=== PATIENT | female | born 1985 | race Caucasian/White ===

== ENCOUNTER 2019-04-19 11:56 | Emergency (ER) | payer MEDICAID, SELFPAY ==
[2019-04-19 11:58] VITALS: BP 109/61; PULSE 78; RESP 14; TEMP 36.7; O2SAT 99; BMI 36.4
--- NOTE | 2019-04-19 12:12 | ED.DCSUM_ITS ---
- ER Visit Summary Date of Service: 04/19/19 Chief Complaint: Medication refill History of Present Illness: The patient is a 33 F who presents for refill of her medications. Patient states she takes Tegretol and ran out last night. Patient states she has an appoint with a neurologist scheduled but it is not until June 07. Patient states she would not give her any medications until she saw her. Patient denies any seizure activity. Patient admits to some intermittent palpitations but denies any other symptoms. Physical Examination: Vital signs are stable. Patient is afebrile. Patient is in no acute distress. Oral mucosa is pink and moist. Neck is supple. Trachea is midline. There is no JVD noted. Heart was regular rate and rhythm. Lungs are clear and equal bilateral. Abdomen is soft. Bowel sounds are normal. There is no tenderness. There is no guarding noted. Skin is warm dry. Cranial nerves II through XII are intact. There are no focal motor or sensory deficits noted. Emergency Department Course and Treatment: Patient was given a month supply of her Tegretol. Patient was also given a referral for a primary care physician to follow-up with in 1 to 2 weeks. Patient was instructed to follow-up with her neurologist as scheduled. Patient understood and was agreeable with the plan. All questions were answered. Disposition: Discharge home Impression: Medication refill This note was generated with [employer] dictation software. It may contain incorrect words, spelling, and punctuation that were not noted in review of the chart prior to signing ED Disposition - Plan for ED Patient: Disposition: Home or Assisted Living Diagnosis: Encounter for medication refill Instructions: Med Refill Prescriptions: Carbamazepine [Tegretol] 200 mg PO TID #2 tab Prescription Printed Referrals: Wilda Tapia MD [COURTESY STAFF PHYSICIAN] - 1-2 Weeks
== END 2019-04-19 12:34 | disposition home or self-care (01) ==
PROVIDERS: Emergency Provider Emergency Medicine
DX: Z76.0 Encounter for issue of repeat prescription (principal); R00.2 Palpitations; F17.210 Nicotine dependence, cigarettes, uncomplicated; E03.9 Hypothyroidism, unspecified
CPT/HCPCS: 99282

== ENCOUNTER 2019-08-08 11:03 | Emergency (ER) | payer OTHER, SELFPAY ==
[2019-08-08 11:04] VITALS: BP 130/75; PULSE 79; RESP 16; TEMP 36.6; O2SAT 100; BMI 36.5
--- NOTE | 2019-08-08 11:32 | ED.VIS.GEN ---
History of Present Illness Chief Complaint: Med Refill Detail of Chief Complaint: Needs Tegretol refill Informant: Patient Narrative: She presents requesting refill of her Tegretol. She has been on Tegretol since the age of 9 for seizures. She is currently between neurologists. She takes 400 mg 3 times daily. - Past Medical History (1) Epilepsy Status: Chronic (2) Hypothyroid Status: Chronic Past Medical History - Allergies and Home Meds Allergies/Adverse Reactions: Allergies penicillin G Allergy (Verified 04/19/19 11:57) Hives Primary Care Physician: Care Physician,No Primary [Primary Care Provider] - Prior records reviewed: Yes Lives: With Family Smoking Status: Former smoker Review of Systems General: Denies: Chills, Fever Eyes: Denies: Visual changes - bilaterally ENT: Denies: Bilateral ear pain Cardiovascular: Denies: Chest pain Respiratory: Denies: Dyspnea, Cough Gastrointestinal: Denies: Abdominal pain Musculoskeletal: Denies: Myalgias Skin: Denies: Rash Neurological: Denies: Headache Physical Exam Vital Signs/Narrative: Vital Signs Temp Pulse Resp BP Pulse Ox 08/08/19 11:04 97.8 F 79 16 130/75 H 100 Inital Vital Signs reviewed: Yes General: Well nourished, Well developed Head: Normocephalic ENT: Moist mucous membranes Neck: Supple Cardiovascular: Regular rate, Regular rhythm Respiratory: No distress, CTA bilaterally Abdomen: Soft, Nontender Extremities: Nontender Skin: Normal color, Rash Neurological: Alert Psychological: Normal affect Diagnostic/Tx/Re-eval - Medical Decision Making Patient be given a refill of her Tegretol. She is to follow-up with neurology as soon as possible. ED Disposition - Plan for ED Patient: Disposition: Home or Assisted Living Diagnosis: Medication refill Instructions: Med Refill Prescriptions: Carbamazepine [Tegretol] 400 mg PO TID #180 tab Transmission Status: Pending to [facility] Referrals: Boy Brothers MD [STAFF PHYSICIAN] -
== END 2019-08-08 11:52 | disposition home or self-care (01) ==
LOC: ED 11:42
PROVIDERS: Emergency Provider Emergency Medicine
DX: Z76.0 Encounter for issue of repeat prescription (principal); G40.909 Epilepsy, unspecified, not intractable, without status epilepticus; Z79.899 Other long term (current) drug therapy; Z87.891 Personal history of nicotine dependence
CPT/HCPCS: 99282

== ENCOUNTER 2019-09-26 09:51 | Emergency (ER) | payer OTHER, SELFPAY ==
[2019-09-26 09:52] VITALS: BP 132/76; PULSE 74; RESP 16; TEMP 36.5; BMI 32.9
--- NOTE | 2019-09-26 10:47 | ED.VIS.GEN ---
History of Present Illness Chief Complaint: Dental Informant: Patient Onset: Days Narrative: Patient presents the emergency department with right upper dental pain. She has not contacted a dentist due to lack of dental insurance. Has not contacted her PCP. She left work and came to the emergency department due to the pain. Pain radiates up towards the right eye and to the right ear. Past Medical History - Allergies and Home Meds Allergies/Adverse Reactions: Allergies penicillin G Allergy (Verified 09/26/19 09:54) Hives Primary Care Physician: Care Physician,No Primary [Primary Care Provider] - Smoking Status: Current every day smoker Review of Systems General: Denies: Chills, Fever, Sweats Eyes: Denies: Visual changes - bilaterally, Diplopia ENT: Reports: - - Dental pain. Denies: Rhinorrhea, Sore throat Cardiovascular: Denies: Chest pain, Palpitations Respiratory: Denies: Dyspnea, Cough, Dyspnea on exertion Gastrointestinal: Denies: Abdominal pain, Nausea, Vomiting, Diarrhea, Melena, Hematochezia Genitourinary: Denies: Dysuria, Hematuria, Frequency Musculoskeletal: Denies: Back pain, Extremity Pain Skin: Denies: Rash, Wounds Neurological: Denies: Headache, Weakness, Numbness Physical Exam Vital Signs/Narrative: Vital Signs Temp Pulse Resp BP 09/26/19 09:52 97.7 F L 74 16 132/76 H Inital Vital Signs reviewed: Yes General: Well nourished - Several missing teeth. It appears to be the #4 tooth that is tender to palpation. No significant gum swelling. No trismus. No facial swelling or erythema., Well developed, No Acute Distress Head: Normocephalic, Atraumatic Eyes: Perrl, EOMI ENT: Moist mucous membranes, No rhinorrhea Neck: Supple, Nontender Cardiovascular: Regular rate, Regular rhythm, No murmurs Respiratory: No distress, CTA bilaterally, Chest nontender Abdomen: Soft, Nontender, Nondistended, Normal bowel sounds Back: Nontender, Normal Inspection Extremities: Nontender, No edema Skin: Normal color, No rash Neurological: Alert, Oriented x3, Cranial nerves II-XII grossly intact, Normal Strength, Normal Sensation Psychological: Normal affect, Normal Mood Diagnostic/Tx/Re-eval - Medical Decision Making Patient was started on penicillin naproxen and [place]. Follow-up with primary care and dentistry ED Disposition - Plan for ED Patient: Disposition: Home or Assisted Living Diagnosis: Pain, dental Instructions: Dental Pain Prescriptions: Clindamycin [Cleocin] 300 mg PO 4X/DAY #80 cap Prescription Printed Naproxen [Naprosyn] 500 mg PO BID PRN #20 tab Prescription Printed Hydrocodone Bitart/Apap 5-325 [[place] 5MG-325MG] 1 tab PO Q6H PRN PRN 3 Days #10 tab PRN Reason: Pain Prescription Printed Referrals: Madelaine Friedman [NON-STAFF] - As soon as possible
== END 2019-09-26 11:18 | disposition home or self-care (01) ==
PROVIDERS: Emergency Provider Emergency Medicine
DX: K08.89 Other specified disorders of teeth and supporting structures (principal); F17.200 Nicotine dependence, unspecified, uncomplicated
CPT/HCPCS: 99282

== ENCOUNTER 2019-12-30 10:34 | Emergency (ER) | payer OTHER, SELFPAY ==
[2019-12-30 10:36] VITALS: BP 122/70; PULSE 91; RESP 16; TEMP 36.1; O2SAT 100; BMI 33.7
--- NOTE | 2019-12-30 11:29 | ED.DCSUM_ITS ---
History of Present Illness Chief Complaint: Back Informant: Patient Onset: Days Context: Gradual Onset Quality: Sharp Location: - - cervical Worsened by: improves with: Movement Relieved by: Remaining Still Associated Symptoms: Numbness Narrative: Is a 34-year-old female with history of seizure disorder, headaches and thyroid disease presenting with continued low neck/upper thoracic back pain. Patient was seen at [place] emergency room yesterday where she had a CT performed. 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 MRI was recommended and patient was going to be transferred to [facility]. Trauma service and requested she be admitted to the hospitalist service and he has been accepted for transfer. Patient was unable to arrange childcare for her 2-year-old son so she left AGAINST MEDICAL ADVICE. She was discharged home in a c-collar. She states she is not had any progression of her symptoms but continues to have significant neck pain as well as paresthesias of her bilateral shoulders to her distal arms. She denies any weakness of her hands or arms. She states she had childcare arranged and is now here for further evaluation. Patient denies any lower back pain or symptoms consistent with cauda equina syndrome. She did have a breakthrough seizure 1 week ago which seemed to be what triggered her neck pain. Past Medical History - Allergies and Home Meds Allergies/Adverse Reactions: Allergies penicillin G Allergy (Verified 12/30/19 10:36) June Primary Care Physician: Care Physician,No Primary [Primary Care Provider] - Past Medical History: - - Migraines, seizure disorder, thyroid disorder Surgical History: noncontributory Lives: With Family Smoking Status: Current every day smoker Review of Systems General: Denies: Chills, Fever, Sweats Eyes: Denies: Visual changes - bilaterally, Diplopia ENT: Denies: Rhinorrhea, Sore throat Cardiovascular: Denies: Chest pain, Palpitations Respiratory: Denies: Dyspnea, Cough, Dyspnea on exertion Gastrointestinal: Denies: Abdominal pain, Nausea, Vomiting, Diarrhea, Melena, Hematochezia Genitourinary: Denies: Dysuria, Hematuria, Frequency Musculoskeletal: Reports: Neck pain. Denies: Back pain, Extremity Pain Skin: Denies: Rash, Wounds Neurological: Reports: Parasthesia - Bilateral upper arms. Denies: Headache, Weakness, Numbness Physical Exam Vital Signs/Narrative: Vital Signs Temp Pulse Resp BP Pulse Ox 12/30/19 10:36 96.9 F L 91 16 122/70 H 100 Inital Vital Signs reviewed: Yes General: Well nourished, Well developed Head: Normocephalic, Atraumatic Eyes: Perrl, EOMI ENT: Moist mucous membranes, No rhinorrhea Neck: Supple, No JVD, - - There is palpation at the base of the neck midline as well as paraspinal muscles. No step-off sign appreciated. Spasm of the paraspinal and trapezius muscles appreciated Cardiovascular: Regular rate, Regular rhythm, No murmurs Respiratory: No distress, CTA bilaterally, Chest nontender Abdomen: Soft, Nontender, Nondistended, Normal bowel sounds Back: Normal Inspection, - - Upper thoracic tenderness palpation diffusely Extremeties: Nontender, No edema Skin: Normal color, No rash Neuro: Alert, Oriented, Normal Strength, Normal Gait, Parasthesia - Bilateral upper arms from the shoulder to the mid arm, - - Normal strength and sensation of the arms in all dermatomes as well as the intrinsic and extrinsic hand muscles Psychological: Normal affect Diagnostic/Tx/Re-eval - Medical Decision Making Patient is evaluated for continued paresthesias in her arms as well as pain in her neck. She had an abnormal CT of her neck yesterday which was concerning for cord compression. Patient was initially accepted for admission at [facility] for a neurosurgical evaluation however she had to leave AM from [place] because of childcare issues. Patient now would like to be admitted. She is continued to have significant pain but is not had any progression of her symptoms. Report is obtained from [place] and I did talk to the [facility] transfer line. Patient is accepted by at [facility] under the medicine service. I do think patient requires a neurosurgical evaluation still as well as MRI of her neck. Patient symptoms are exacerbated when she extends her neck. This is concerning to me for some anterior compression. This can all be performed at [facility] as [facility] does not have neurosurgery. Patient is agreeable this plan. She is given a dose of morphine in the ER for pain control. ED Disposition - Plan for ED Patient: Disposition: [facility] Diagnosis: Neck pain, Paresthesia of upper extremity, Abnormal CT of spine Referrals: Care Physician,No Primary [Primary Care Provider] -
--- NOTE | 2019-12-30 11:59 | NURSING ---
ACCEPTED BY DR OBANDO. WAITING ON BED ASSIGNMENT
--- NOTE | 2019-12-30 13:10 | NURSING ---
[facility] room [id number] n to n [phone]
[2019-12-30] MEDS: Morphine 4 MG/ML Syringe IV (13:21)
[2019-12-30 13:22] VITALS: BP 122/58; PULSE 61; RESP 16; O2SAT 100
--- NOTE | 2019-12-30 13:32 | NURSING ---
CALLED [facility]YSICANS FOR TRANSPORT. ETA IS 90 MIN
== END 2019-12-30 14:37 | disposition short-term general hospital (02) ==
LOC: ED 11:39
PROVIDERS: Emergency Provider Emergency Medicine
DX: M54.2 Cervicalgia (principal); M54.6 Pain in thoracic spine; R93.7 Abnormal findings on diagnostic imaging of other parts of musculoskeletal system; G40.909 Epilepsy, unspecified, not intractable, without status epilepticus; F17.200 Nicotine dependence, unspecified, uncomplicated
CPT/HCPCS: 96374; 99284

== ENCOUNTER 2021-01-21 07:36 | Emergency (ER) | payer MEDICAID, SELFPAY ==
[2021-01-21 07:37] VITALS: BP 129/91; PULSE 73; RESP 16; TEMP 36.1; O2SAT 100; BMI 25.0
--- NOTE | 2021-01-21 07:50 | EX.ED.DYSGE1 ---
HPI History of Present Illness Chief Complaint: Dental Narrative Narrative: Dental pain got worse last night right upper, no fever no cough no trauma no other complaints she indicates she has physicians at [facility] in [place] she lives in [place] asking for dental referral [facility] Medical History (Updated 01/21/21 @ 07:[address] Vinayak Johnson MD) Seizures Home Medications carbamazepine 400 mg PO TIDCM 01/18/17 [History Last Taken 01/17/17 20:00 1] clindamycin HCl [Cleocin HCl] 300 mg PO Q6H #28 capsule 01/21/21 [Rx Last Taken Unknown] naproxen 500 mg PO BID #14 tab 01/21/21 [Rx Last Taken Unknown] Allergy/AdvReac Type Severity Reaction Status Date / Time penicillin G Allergy Hives Verified 01/21/21 07:38 Social History Smoking Status: Current every day smoker tobacco type: e-cigarettes ROS ROS ED ROS Narrative Right upper dental pain only Constitutional Constitutional ED: Reports subjective, sweats and other; Denies chills, fever(s) or weight loss Eyes Eyes: Denies blurry vision or change in vision ENT ENT ED: Denies ear pain Cardiovascular Cardiovascular: Denies chest pain or palpitations Respiratory/Chest Respiratory/Chest: Denies dyspnea Gastrointestinal Gastrointestinal: Denies abdominal pain, nausea or vomiting Genitourinary Genitourinary ED: Denies dysuria or hematuria Musculoskeletal Musculoskeletal: Denies arthralgias or myalgias Integumentary Reports rash; Denies abscess Neurologic Neurologic: Denies weakness Psychiatric Psychiatric: Denies anxiety or depression Endocrine Endocrinology: Denies polydipsia or polyuria Allergic/Immunologic Allergic/Immunologic ED: Denies urticaria EXAM Physical Exam Narrative Exam Narrative: HEENT vital signs general medical exam entirely unremarkable see below, she has a cavity involving one of the right upper teeth there is no abscess formation gingival gumline is normal mouth oral cavity face unremarkable, Const Vital Signs: 01/21/21 07:37 Temperature 97.0 F L Temperature Source Temporal Pulse Rate 73 Respiratory Rate 16 Blood Pressure 129/91 H Blood Pressure Mean 103 Pulse Ox 100 Oxygen Delivery Method Room Air Positive well developed General Appearance ED: well developed HEENT Reports normocephalic Negative for trauma Eyes EOMs intact bilaterally Neck supple Chest Wall inspection of chest normal Resp normal respiratory effort Cardio regular rate GI non-tender and non-distended Back/Spine Back/Spine Narrative: unremarkable Extremity normal to inspection Neuro oriented x3 and CN's II-XII intact bilaterally Sensorium / Orientation: alert Psych mental status grossly normal Skin no rashes or lesions noted MDM MDM MDM Narrative Medical decision making narrative: She has allergies to penicillin she will be started on clindamycin, Toradol here 1 Gower tablet here she continue to use Naprosyn and clindamycin she was given the dental referral list and explained to her that given the nature of the cavity she may have nerve irritation she must be managed for this condition by dental health as there is limits what the emergency department can do for this condition and she will follow-up with dental services Discharge Plan Triage Chief Complaint: Dental ED Provider: Vinayak Johnson Dx/Rx/DC Orders Clinical Impression: Pain due to dental caries Instructions: ED Dental Cavity Prescriptions: New clindamycin HCl [Cleocin HCl] 300 MG capsule 300 mg PO Q6H Qty: 28 RF: 0 naproxen 500 MG tablet 500 mg PO BID Qty: 14 RF: 0 No Action carbamazepine 200 MG tablet 400 mg PO TIDCM RF: 0 Primary Care Provider: Care Physician,No Primary Referrals: Care Physician,No Primary [Primary Care Provider] -
[2021-01-21] MEDS: Ketorolac 60 MG/2 ML Vial IM (08:02)
[2021-01-21] MEDS: HYDROcodone Bitartrate/Apap 5/325 Tablet PO (08:03)
[2021-01-21] MEDS: Clindamycin HCl 150 MG Capsule 300 MG PO (08:03)
== END 2021-01-21 08:23 | disposition home or self-care (01) ==
PROVIDERS: Emergency Provider Emergency Medicine
DX: K02.9 Dental caries, unspecified (principal); F17.290 Nicotine dependence, other tobacco product, uncomplicated
CPT/HCPCS: 96372; 99281; 99283